=== PATIENT | female | born 1960 | race Caucasian/White ===

== ENCOUNTER 2016-10-16 05:35 | Inpatient (IN) | payer OTHER ==
[~2016-10-16] VITALS: Ht 170.2 cm; Wt 78.9 kg
[2016-10-16] VITALS: BP 107/62
[2016-10-16] MEDS ORDERED: BUPIVACAINE MPF 0.5% W/EPI INJ 30 ML VIAL ONE (06:30)
[2016-10-16] MEDS ORDERED: KETOROLAC TROMETHAMINE INJ 30 MG/ML VIAL ONE (06:30)
[2016-10-16] MEDS ORDERED: BACITRACIN 50000 UNITS/VIAL ONE (06:30)
[2016-10-16] MEDS ORDERED: SUCCINYLCHOLINE CHLORIDE 20 MG/ML VIAL ONE (07:21)
[2016-10-16] MEDS ORDERED: MORPHINE SULFATE/PF 10 MG/10ML (1MG/ML) AMPUL ONE (07:21)
[2016-10-16] MEDS ORDERED: MIDAZOLAM HCL 2 MG/2ML VIAL ONE ×2 (07:23→07:24)
[2016-10-16 07:24] VITALS: BP 148/92
[2016-10-16] MEDS ORDERED: TRANEXAMIC ACID 3,000 MG in SODIUM CHLORIDE IRRIG SOLUTION 70 ML IR ONE (07:30)
--- NOTE | 2016-10-16 09:45 | NUR ---
RN OPENING NOTES RN OPENING NOTES RECEIVED TRANSFER PATIENT FROM OR. RECEIVED REPORT FROM Connor MAC RN. PATIENT IS AWAKE, HOB ELEVATED, NO SOB OR DISTRESS NOTED. A/O X 4, VERBALLY RESPONSIVE AND ABLE TO MAKE NEEDS KNOWN. IV INTACT AND PATENT. KEPT PATIENT CLEAN AND COMFORTABLE IN BED, CALL LIGHT WITHIN PATIENT REACH. WILL CONTINUE TO MONITOR ACCORDINGLY.
[2016-10-16] MEDS ORDERED: DOCUSATE SODIUM 250 MG CAPSULE PO PRN (10:30)
[2016-10-16] MEDS ORDERED: ZOLPIDEM TARTRATE 5 MG TABLET PO PRN (10:30)
[2016-10-16] MEDS ORDERED: ONDANSETRON HCL/PF 4 MG/2 ML VIAL IVP PRN (10:30)
[2016-10-16] MEDS ORDERED: ACETAMINOPHEN 325 MG TABLET PO PRN (10:30)
[2016-10-16] MEDS ORDERED: diphenhydrAMINE HCL 50 MG/ML VIAL IM PRN (10:30)
[2016-10-16] MEDS ORDERED: HYDROMORPHONE 1 MG/1 ML DISP.SYRIN IV PRN ×2 (10:30)
[2016-10-16] MEDS ORDERED: SENNOSIDES 8.6 MG TABLET PO PRN (10:30)
[2016-10-16] MEDS ORDERED: NALOXONE HCL 0.4 MG/ML AMPUL IV PRN (10:30)
[2016-10-16] MEDS ORDERED: HYDROCODONE/APAP 5/325MG 1 EACH TABLET PO PRN ×3 (10:30→16:30)
[2016-10-16] MEDS ORDERED: IV LR 1000 ML 1,000 ML IV PRN (10:30)
[2016-10-16] MEDS ORDERED: BISACODYL SUPP (10 MG) 10 MG/SUPP.RECT SUPP.RECT RC PRN (10:30)
--- NOTE | 2016-10-16 12:45 | NUR ---
RN NOTES PATIENT IS WITH AND CHILDREN AT BEDSIDE WITH NO SOB OR DISTRESS NOTED.
[2016-10-16 14:44] LABS: EOSINOPHILS # (AUTO) 0.1 /CMM (0.0-0.7); EOSINOPHILS % (AUTO) 0.4 % (0.0-6.0); HEMATOCRIT 39 % (33-45); HEMOGLOBIN 12.9 g/dL (11.5-14.8); LYMPHOCYTES # (AUTO) 0.9 /CMM (0.8-4.8); LYMPHOCYTES % (AUTO) 8.4 % (20.0-44.0); MEAN CORPUSCULAR HEMOGLOBIN 31 PG (26.0-33.0); MEAN CORPUSCULAR HGB CONC 33 g/dl (31.0-36.0); MEAN CORPUSCULAR VOLUME 94 fL (82-100); MONOCYTES # (AUTO) 0.1 /CMM (0.1-1.30); MONOCYTES % (AUTO) 0.8 % (2.0-12.0); NEUTROPHILS # (AUTO) 10.2 /CMM (1.8-8.9); NEUTROPHILS % (AUTO) 90.4 % (43.0-81.0); PLATELET COUNT (AUTO) 209 /CMM (150-450); RDW COEFFICIENT OF VARIATION 13.6 (11.5-15.0); RED BLOOD CELL COUNT(AUTO) 4.12 MIL/uL (4.0-5.2); WHITE BLOOD COUNT (AUTO) 11.3 K/uL (4.3-11.0)
[2016-10-16 14:52] LABS: CALCIUM, SERUM 8.2 mg/dL (8.5-10.1); CREATININE 0.8 mg/dL (0.6-1.3); POTASSIUM 3.9 mmol/L (3.5-5.1)
[2016-10-16] MEDS ORDERED: SECONDARY IV SET 1 EA INFUS.SET MC ONE (15:13)
[2016-10-16] MEDS ORDERED: IV SET PRIMARY PUMP SET 1 EA INFUS.SET MC ONE (15:13)
[2016-10-16] MEDS: ANCEF 1 GM/50 ML D5W IV SCH ×4 (15:25→23:50)
[2016-10-16 16:00] VITALS: BP 126/74
[2016-10-16] MEDS ORDERED: HYDROMORPHONE 1 MG/1 ML DISP.SYRIN SQ PRN (16:30)
[2016-10-16] MEDS ORDERED: MENTHOL/CETYLPYRD (CEPACOL) 1 LOZ LOZENGE PO PRN (16:30)
[2016-10-16] MEDS ORDERED: MAG HYDROX/AL HYDROX/SIMETH 30 ML UDC PO PRN (16:30)
[2016-10-16] MEDS ORDERED: ONDANSETRON HCL/PF 4 MG/2 ML VIAL IV PRN (16:30)
[2016-10-16] MEDS ORDERED: diphenhydrAMINE HCL 25 MG CAPSULE PO PRN (16:30)
[2016-10-16] MEDS: DOCUSATE SODIUM 100 MG CAPSULE PO SCH (17:56)
--- NOTE | 2016-10-16 19:05 | NUR ---
TELE/GAUGE MAKER; RECEIVED PT'S REPORTS FROM THE DAY SHIFT RN . AT THIS TIME PT IN BED AWAKE, ALERT AND ORIENTED. DENIES PAIN AT THIS TIME. BREATHING NON LABORED. WITH TELEMETRY. LT HIP SURGICAL INCISION WITH DRESSING INTACT AND DRY. WITH ABDUCTION PILLOW IN BETWEEN LEGS ON. WITH DVT PUMP ON LOWER LEGS. PEDAL PULSE PALPABLE AND PT ABLE TO MOVE HER TOES. WITH GARCIA CATH WITH YELLOW URINE 200 ML . PT REMINDED TO USE HER SPIROMETRY. BED ON LOWER POSITION AND LOCKED FOR SAFETY. SIDE RAILS UPPER PART OF BED ARE UP FOR SAFETY. WILL CONTINUE TO MONITOR. HL ON RT HAND INTACT AND PATENT.
--- NOTE | 2016-10-16 19:22 | NUR ---
RN NOTES ALL NEEDS PROVIDED, ATTENDED, AND ANTICIPATED. KEPT PATIENT CLEAN AND COMFORTABLE IN BED, CALL LIGHT WITHIN PATIENT REACH, WILL CONTINUE TO MONITOR ACCORDINGLY. ENDORSED TO NEXT SHIFT RN TO CONTINUE CARE.
--- NOTE | 2016-10-16 19:45 | NUR ---
RN NOTES XARELTO DOSE GIVEN BUT COMPUTER DID NOT CLEAR THE 1700 DOSE.
[2016-10-16] MEDS: RIVAROXABAN 10 MG TABLET PO SCH (19:46)
[2016-10-16 20:00] VITALS: BP 113/62
[2016-10-16] MEDS: PANTOPRAZOLE 40 MG TABLET.DR PO SCH (21:48)
[2016-10-17] VITALS: BP 107/62
--- NOTE | 2016-10-17 02:15 | NUR ---
TELE/DIRECTOR OF HEALTHCARE SYSTEMS; PT SLEEPING AT THIS TIME. BREATHING NON LABORED. WILL CONTINUE TO MONITOR.
[2016-10-17 04:00] VITALS: BP 106/68
--- NOTE | 2016-10-17 04:00 | NUR ---
TELE/RHEUMATOLOGY SPECIALIST; SLEEPING AT THIS TIME. BREATHING NON LABORED. CONTINUE TO MONITOR.
--- NOTE | 2016-10-17 04:45 | NUR ---
TELE/SURVEY CHIEF; PT ON SR 95.
[2016-10-17 06:00] VITALS: BP 126/75
--- NOTE | 2016-10-17 06:15 | NUR ---
TELE/MANAGING MEMBER; DR. KELLOGG CALLED AND ASKED HOW IS THE PT DURING THE NIGHT. I TOLD DR. KELLOGG PT DID NOT ASKED FOR PAIN MED. I TOLD HIM ALSO THAT PT AMBULATE WITH PT YESTERDAY. PT WAS REPOSITIONED TO SIDE NIGHT TIME. I TOLD HIM ALSO THE FC WILL BE DC BY THE DAY SHIFT. PT ON HL NO MORE IVF. DR. KELLOGG WANTS O2 OFF. SO O2 I TURNED OFF.
--- NOTE | 2016-10-17 06:55 | NUR ---
TELE/LOG CHIPPER; SLEPT FAIRLY. DRESSING LT HIP INTACT AND DRY . PT WANTS STOCKING AND DVT PUMP OFF DURING THE NIGHT. FC WITH 1500 ML YELLOW URINE. WILL ENDORSE TO THE DAY SHIFT NURSE.
[2016-10-17 07:27] LABS: BASOPHILS % (AUTO) 0.3 % (0.0-2.0); EOSINOPHILS % (AUTO) 0.3 % (0.0-6.0); HEMATOCRIT 34 % (33-45); HEMOGLOBIN 11.7 g/dL (11.5-14.8); LYMPHOCYTES # (AUTO) 1.6 /CMM (0.8-4.8); LYMPHOCYTES % (AUTO) 21.5 % (20.0-44.0); MEAN CORPUSCULAR HEMOGLOBIN 32 PG (26.0-33.0); MEAN CORPUSCULAR HGB CONC 34 g/dl (31.0-36.0); MEAN CORPUSCULAR VOLUME 93 fL (82-100); MONOCYTES # (AUTO) 0.7 /CMM (0.1-1.30); NEUTROPHILS # (AUTO) 5.1 /CMM (1.8-8.9); NEUTROPHILS % (AUTO) 68.9 % (43.0-81.0); PLATELET COUNT (AUTO) 197 /CMM (150-450); RDW COEFFICIENT OF VARIATION 13.7 (11.5-15.0); RED BLOOD CELL COUNT(AUTO) 3.68 MIL/uL (4.0-5.2); WHITE BLOOD COUNT (AUTO) 7.4 K/uL (4.3-11.0)
[2016-10-17 07:40] LABS: CALCIUM, SERUM 8.6 mg/dL (8.5-10.1); CREATININE 0.7 mg/dL (0.6-1.3)
--- NOTE | 2016-10-17 07:45 | NUR ---
RN OPENING NOTES PATIENT IS AWAKE, HOB ELEVATED, NO SOB OR DISTRESS NOTED. A/O X 4, VERBALLY RESPONSIVE AND ABLE TO MAKE NEEDS KNOWN. IV INTACT AND PATENT. RIGHT HAND 18G. GARCIA CATHETER PRESENT. KEPT PATIENT CLEAN AND COMFORTABLE IN BED, CALL LIGHT WITHIN PATIENT REACH. WILL ASSESS PATIENTS PAIN LEVEL. WILL CONTINUE TO MONITOR ACCORDINGLY.
--- NOTE | 2016-10-17 08:24 | NUR ---
CHARGE NOTE: DC TELEMETRY PER DR. TAVARES.
[2016-10-17] MEDS: DOCUSATE SODIUM 100 MG CAPSULE PO SCH ×2 (08:46→17:00)
[2016-10-17] MEDS: oxyCODONE IR immediate release 5 MG CAPSULE PO PRN ×3 (10:03→21:14)
--- NOTE | 2016-10-17 10:26 | NUR ---
PATIENT COMPLAINED OF PAIN 5/10 AND NAUSEA. MEDICATED PATIENT WITH OXYCODONE 5MG AND 4MG ZOFRAN. WILL CONTINUE TO MONITOR AND WILL REASSESS.
--- NOTE | 2016-10-17 10:45 | NUR ---
D/C GARCIA PER POST-OP ORDERS. ORDER STATES D/C GARCIA POST-OP DAY 1. BALOON DEFLATED 8ML. PATIENT TOLERATED PROCEDURE WELL. WILL CONTINUE TO MONITOR PATIENT.
--- NOTE | 2016-10-17 10:54 | NUR ---
PATIENT CURRENTLY AMBULATING ON FLOOR WITH PHYSICAL THERAPIST NAFISA WITH WALKER. PATIENT TOLERATING AMBULATION WELL. WILL CONTINUE TO MONITOR.
--- NOTE | 2016-10-17 11:05 | NUR ---
RN MS NOTES CALL RECEIVED FROM DR. KELLOGG, UPDATE GIVEN TO MD REGARDING PT STATUS, PT ABLE TO AMBULATE WITH A WALKER TO THE BATHROOM WITH STANDBY ASSISTANCE, CURRENTLY WALKING WITH PT, TOLERATING WELL.
--- NOTE | 2016-10-17 11:54 | NUR ---
RN MS NOTES PT IN BED, SEEN BY DR. KELLOGG, PLAN OF CARE DISCUSSED WITH PT, VERBALIZED UNDERSTANDING, PT STATES SHE WOULD LIKE TO GO HOME TODAY, AWAITING ORTHO CLEARANCE, NEEDS ATTENDED.
--- NOTE | 2016-10-17 12:24 | NUR ---
KATARZYNA BARRIGA MET WITH PATIENT. DISCUSSED PAIN MANAGEMENT, PHYSICAL THERAPY, AND D/C TOMORROW.
[2016-10-17] MEDS ORDERED: SUMATRIPTAN SUCCINATE 25 MG TABLET PO ONE (13:00)
--- NOTE | 2016-10-17 15:31 | NUR ---
PATIENT UP AND AMBULATING WITH PHYSICAL THERAPY. PATIENT MEDICATED WITH OXYCODONE PRIOR TO SECOND SESSION OF PHYSICAL THERAPY. PATIENT TOLERATING AMBULATION WELL. WILL CONTINUE TO MONITOR PATIENT.
[2016-10-17 16:00] VITALS: BP 128/85
[2016-10-17] MEDS: RIVAROXABAN 10 MG TABLET PO SCH (17:00)
--- NOTE | 2016-10-17 19:13 | NUR ---
RN CLOSING NOTES PATIENT AWAKE IN BED RESTING COMFORTABLY. ALL NEEDS PROVIDED. KEPT PATIENT CLEAN AND COMFORTABLE IN BED, CALL LIGHT WITHIN PATIENT REACH, WILL CONTINUE TO MONITOR ACCORDINGLY. ENDORSED TO NEXT SHIFT RN TO CONTINUE CARE.
--- NOTE | 2016-10-17 19:30 | NUR ---
RN NOTES RECEIVED PATIENT IN BED AWAKE, AO X 3, ABLE TO MAKE NEEDS KNOWN. NO ACUTE DISTRESS NOTED. IV SITE PATENT, INTACT; FLUSHED. ABDUCTOR PILLOW IN USE. SAFETY REMINDERS GIVEN. ON LOW BED WITH BILATERAL UPPER SIDE RAILS UP. CALL LIGHT WITHIN EASY REACH. WILL CONTINUE TO MONITOR.
[2016-10-17 20:00] VITALS: BP 122/72
[2016-10-17] MEDS: PANTOPRAZOLE 40 MG TABLET.DR PO SCH (21:09)
[2016-10-18] MEDS: oxyCODONE IR immediate release 5 MG CAPSULE PO PRN ×4 (00:26→12:57)
--- NOTE | 2016-10-18 06:11 | NUR ---
RN NOTES PATIENT ASLEEP, EASILY AROUSABLE. RESPIRATIONS EVEN. NO SIGNS OF PAIN NOTED. DUE MEDS GIVEN WITH NO ASE NOTED. NEEDS ATTENDED. HIP PRECAUTIONS IN PLACE. SAFETY PRECAUTIONS AND COMFORT MEASURES IN PLACE. WILL GIVE REPORT TO DAY SHIFT FOR CONTINUITY OF CARE.
--- NOTE | 2016-10-18 07:30 | NUR ---
m/s fire alarm repairer: initial assessment received pt in bed awake, a/ox4. s/p left total hip arthroplasty. dressing to left hip intact, clean, and dry. p.t. tx in progress. instructed to call for assistance. no c/o pain or any discomfort. will continue to monitor.
[2016-10-18 08:00] VITALS: BP 134/80
[2016-10-18] MEDS ORDERED: RIVA10TA PO ×2 (09:21→09:24)
[2016-10-18] MEDS: DOCUSATE SODIUM 100 MG CAPSULE PO SCH (09:55)
--- NOTE | 2016-10-18 10:30 | NUR ---
m/s relationship associate: md visit seen and examined by dr. lowery with order to d'c home with home health. rodriguez (case management) making arrangement. pt aware. darlene weems (ortho) notified and made aware and okay to d'c home.
--- NOTE | 2016-10-18 11:30 | NUR ---
m/s editor in chief newspaper: notes up with pmandi moore. well.
--- NOTE | 2016-10-18 11:55 | NUR ---
m/s erosion control coordinator: notes case management at bedside to discuss home health, but pt refused. referral card given by rodriguez (case management) for outpatient physical therapy per pt's request. cn aware.
--- NOTE | 2016-10-18 12:57 | NUR ---
m/s city councilman: notes c/o 5/10 left hip pain, medicated with oxy ir 5mg po as ordered. will continue to monitor. awaiting for to pick her up.
--- NOTE | 2016-10-18 13:00 | NUR ---
m/s cover marker: notes h/l removed with tip intact with no bleeding, no redness, and no swelling noted. awaiting for to pick her up.
--- NOTE | 2016-10-18 13:21 | NUR ---
m/s high frequency mill operator: discharged discharged home accompanied by in stable condition with commode via private car.
== END 2016-10-18 13:21 | disposition home health service (06) | DRG 470 ==
LOC: DS 05:35 → MED 09:17 → TELE 21:25 → MED 10-17 09:00
PROVIDERS: ADMIT Specialist; ATTEND Specialist
PROC: 0SRB0JZ Replacement of Left Hip Joint with Synthetic Substitute, Open Approach (ICD-10-PCS; principal; 2016-10-16 07:40)
DX: M16.12 Unilateral primary osteoarthritis, left hip (principal); Z98.890 Other specified postprocedural states; G43.909 Migraine, unspecified, not intractable, without status migrainosus
CPT/HCPCS: 36415; 80048-TC; 85025-TC; 86850-TC; 86921-TC; 87081-TC; 88305-TC; 88311-TC; 97001-TC; 97110-TC; 97116-TC; 97530-TC; A4217; A4606; A6402; J0330; J0690; J1100; J1885; J2250; J2274; J2405; J2704; J3490; J7060; J7120

== ENCOUNTER 2017-01-15 05:38 | Inpatient (IN) | payer OTHER ==
[~2017-01-15] VITALS: Ht 167.6 cm; Wt 74.8 kg
[~2017-01-15 05:38] MED LIST: RIVA10TA PO
[2017-01-15 10:00] VITALS: BP 125/73
--- NOTE | 2017-01-15 10:30 | NUR ---
MS RN NOTE PATIENT ARRIVED UNIT VIA GURNEY FROM DAY SURGERY, S/P RT HIP ARHTROPLASTY BY DR. RANDALL, MEPILEX DRESSING IN PLACE, DRY/INTACT. ON RA, NO SOB, RESPIRATION UNLABORED, DENIES PAIN AT THIS TIME. FOR PT. EVAL. REGULAR DIET. LR AT 100 ML/HR TO LEFT H AND G 20 INFUSING WELL, SITE CLEAR. ALL POST OP ORDERS CARRIED OUT. ADDUCTOR PILLOW IN PLACE. VITAL SIGN TAKEN. STABLE. UNIT ORIENTATION DONE AND USE OF CALL LIGHT. SAFETY PRECAUTIONS IN PLACE. WILL CONT TO MONITOR.
--- NOTE | 2017-01-15 10:47 | NUR ---
MS RN NOTES DR. HAM INFORMED OF PATIENT ARRIVED ON THE FLOOR FROM DAY SURGERY AND NOTIFIED HER FOR ANY ORDERS.
[2017-01-15 11:08] VITALS: BP 125/73
--- NOTE | 2017-01-15 15:39 | NUR ---
MS RN NOTES STARTED ANCEF IV.
[2017-01-15 16:00] VITALS: BP 130/80
--- NOTE | 2017-01-15 16:20 | NUR ---
MS RN NOTES PER PHARMACY, FOR DILAUDID, THEY CHANGE THE DOSE AVAILABLE IN THE OMNICELL. I ADMINISTERED 0.25 ML OF 2 MG/ML DILAUDID EARLIER.
[2017-01-15 18:00] VITALS: BP 130/80
--- NOTE | 2017-01-15 18:53 | NUR ---
MS RN CLOSING NOTES PATIENT RESTING COMFORTABLY. AO X3. NOT IN ANY DISTRESS ON RA, IVF RUNNING TO LEFT HAND G20. SITE CLEAR. NO PAIN AT THIS TIME. ABLE TO AMBULATE WITH P.T. EARLIER. ALL NEEDS MET. SEEN BY DR. KELLOGG AND DR. HAM EARLIER. NO OTHER SIGNIFICANT CHANGE IN CONDITION. CALL LIGHT WITHIN REACH. WILL ENDORSE TO NEXT SHIFT FOR JEFF.
--- NOTE | 2017-01-15 19:45 | NUR ---
MS RN INITIAL NOTES PT IS IN BED RESTING. DENIES PAIN BUT REQUESTING PAIN MEDICATION "TO PREVENT PAIN FROM OCCURRING" PER PT. NO SIGNS OF SOB OR DISTRESS, BREATHING EVENLY AND UNLABORED ON ROOM AIR. GARCIA CATHETER IS INTACT AND DRAINING. BED IS IN LOW AND LOCKED POSITION, CALL LIGHT WITHIN REACH. WILL CONTINUE TO MONITOR PT.
[2017-01-15 20:00] VITALS: BP 141/79
--- NOTE | 2017-01-16 06:50 | NUR ---
MS RN CLOSING NOTES PT IS IN BED AWAKE AND ALERT. NO SIGNS OF SOB OR DISTRESS. PAIN MED WAS GIVEN WITH CRACKERS TO AVOID UPSET STOMACH. ALL NEEDS WERE ANTICIPATED AND MET. BED IS IN LOW AND LOCKED POSITION, CALL LIGHT WITHIN REACH. WILL ENDORSE TO DAY SHIFT
--- NOTE | 2017-01-16 07:30 | NUR ---
RN OPENING NOTES RECEIVE PT. IN BED A&OX3. BREATHING UNLABORED AND EVENLY ON ROOM AIR. NO S/S OF ACUTE DISTRESS. IV FLUIDS RUNNING. BED IS IN LOW LOCKED POSITION, 2 SIDE RAILS UP, AND INSTRUCTED PT. TO USE CALL LIGHT FOR ASSISTANCE. WILL CONTINUE TO ASSESS AND MONITOR.
--- NOTE | 2017-01-16 07:30 | NUR ---
RN NOTES GARCIA CATHETER 925 ML OUTPUT THIS MORNING. DISCONTINUE GARCIA AT 1130.
[2017-01-16 08:00] VITALS: BP 138/70
--- NOTE | 2017-01-16 10:10 | NUR ---
RN NOTES PT. WAS SEEN AND EXAMINED BY PHYSICAL THERAPIST. PT. NEEDS STANDBY ASSISTANCE. CAN AMBULATE WITH WALKER.
--- NOTE | 2017-01-16 11:42 | NUR ---
RN NOTES GARCIA CATHETER REMOVED WITHOUT COMPLICATIONS. 700 CC OUTPUT OF CLEAR AND YELLOW URINE.
--- NOTE | 2017-01-16 12:00 | NUR ---
RN NOTES PT. HAS ONE VOID POST GARCIA CATHETER REMOVAL. PT. DID NOT C/O BURNING,AND PAIN ON URINATION.
--- NOTE | 2017-01-16 17:30 | NUR ---
RN NOTES DISCHARGE PT. WAS DISCHARGED IN MEDICALLY STABLE CONDITION. PT. LEFT BY WHEELCHAIR WITH DAUGHTER ALONG SIDE. DISCHARGE INSTRUCTIONS WERE PROVIDED, AND PT. VERBALIZED UNDERSTANDING. PT. BELONGINGS LIST WAS SIGNED AND PLACED IN CHART. IV AND ID BAND WAS REMOVED WITHOUT COMPLICATIONS. ALL QUESTIONS WERE ANSWERED. PT. REFUSED INFLUENZA VACCINE, AND PHYSICAL THERAPY WITH HOME HEALTH. PT. WAS PROVIDED DOCTOR'S PHONE NUMBER TO FOLLOW UP, AND HOME [facility]ALTH AGENCY FOR PHYSICAL THERAPY. PT. SAID SHE HAS A WALKER AT HOME.
== END 2017-01-16 17:10 | disposition home or self-care (01) | DRG 470 ==
LOC: DS 05:38 → MED 10:09
PROVIDERS: ADMIT Internal Medicine; ATTEND Specialist
PROC: 0SR90JZ Replacement of Right Hip Joint with Synthetic Substitute, Open Approach (ICD-10-PCS; principal; 2017-01-15 07:55)
DX: M16.11 Unilateral primary osteoarthritis, right hip (principal); Z96.642 Presence of left artificial hip joint; G43.909 Migraine, unspecified, not intractable, without status migrainosus
CPT/HCPCS: 36415; 86850-TC; 86921-TC; 88305-TC; 88311-TC; 97110-TC; 97116-TC; 97530-TC; A4217; A6209; A6402; J0690; J1170; J1885; J2250; J2270; J2370; J2704; J3010; J3490; J7060; J7120; Z7610